=== PATIENT | male | born 1960 | race Asian ===

== ENCOUNTER 2018-01-07 14:07 | Emergency (ER) | payer OTHER | END 2018-01-07 15:40 | disposition home or self-care (01) | LOC: E/R 14:07 | DX: I10 Essential (primary) hypertension (principal) | CPT/HCPCS: 99283; Z7502 ==

== ENCOUNTER 2018-04-05 22:06 | Emergency (ER) | payer OTHER ==
[2018-04-05] MEDS: ACETAMINOPHEN 325 MG TAB PO (23:19)
[2018-04-05] MEDS: SOD CHLORIDE 0.9% 1,000 ML IV (23:20)
[2018-04-05] MEDS: KETOROLAC 15 MG INJ IV (23:20)
[2018-04-05 23:45] LABS: ADD MAN DIFF? NO
[2018-04-05 23:47] LABS: WHITE BLOOD COUNT 10.5 10^3/ul (4.8-10.8)
[2018-04-05 23:47] LABS: BASOPHILS % 0.4 % (0.0-2.0); EOSINOPHILS # 0.1 10^3/ul (0.0-0.5); EOSINOPHILS % 1.3 % (0.0-7.0); HEMATOCRIT 43.3 % (42.0-52.0); HEMOGLOBIN 14.6 g/dl (14.0-18.0); LYMPHOCYTES # 0.9 10^3/ul (0.8-2.9); LYMPHOCYTES % 8.1 % (15.0-51.0); MEAN CORPUSCULAR HEMOGLOBIN 32.4 pg (29.0-33.0); MEAN CORPUSCULAR HGB CONC 33.7 g/dl (32.0-37.0); MEAN PLATELET VOLUME 9.8 fl (7.4-10.4); MONOCYTE # 0.7 10^3/ul (0.3-0.9); MONOCYTES % 6.6 % (0.0-11.0); NEUTROPHIL # 8.8 10^3/ul (1.6-7.5); NEUTROPHILS % 83.3 % (39.0-77.0); PLATELET COUNT 169 10^3/UL (140-415); RED BLOOD COUNT 4.51 10^6/ul (4.70-6.10)
[2018-04-06 00:05] LABS: ANION GAP 12 (8-16); BLOOD UREA NITROGEN 18 mg/dl (7-20); CALCIUM 8.3 mg/dl (8.4-10.2); CARBON DIOXIDE 29 mmol/L (21-31); CHLORIDE 106 mmol/L (97-110); CREATININE 0.81 mg/dl (0.61-1.24); GLUCOSE 125 mg/dl (70-220); POTASSIUM 3.8 mmol/L (3.5-5.1); SODIUM 143 mmol/L (135-144)
== END 2018-04-06 01:14 | disposition home or self-care (01) ==
LOC: E/R 04-06 01:14
DX: B34.9 Viral infection, unspecified (principal); I10 Essential (primary) hypertension
CPT/HCPCS: 36415; 71045; 80048; 85025; 93005; 96374; 99285-25